=== PATIENT | female | born 1965 | race African-American/Black ===

== ENCOUNTER 2017-01-08 09:32 | Emergency (ER) | payer SELFPAY ==
[~2017-01-08 09:32] MED LIST: AMLO5TAB22 PO; DIPH50TA PO; LISI-360 PO; PRED20 PO; RANI150 PO
[2017-01-08 09:34] VITALS: BP 214/104; PULSE 89; RESP 16; TEMP 98.3; O2SAT 98
[2017-01-08 10:07] LABS: AUTOMATED NEUTROPHIL # 4.3 TH/MM3 (1.8-7.7); BASOPHIL % 0.5 % (0.0-2.0); EOSINOPHIL # 0.3 TH/MM3 (0-0.4); EOSINOPHIL % 3.8 % (0.0-4.0); HEMATOCRIT 39.5 % (35.0-46.0); HEMO FLAGS DIFF FINAL; LYMPH % 28.4 % (9.0-44.0); MEAN CORPUSCULAR HEMOGLOBIN 31.7 PG (27.0-34.0); MEAN CORPUSCULAR HGB CONC 33.3 % (32.0-36.0); MONO % 4.5 % (0.0-8.0); NEUT % 62.8 % (16.0-70.0); PLATELET COUNT 236 TH/MM3 (150-450); RED BLOOD COUNT 4.16 MIL/MM3 (4.00-5.30); RED CELL DISTRIBUTION WIDTH 13.6 % (11.6-17.2); WHITE BLOOD COUNT 6.9 TH/MM3 (4.0-11.0)
[2017-01-08 10:18] LABS: BACTERIA, URINE OCC /hpf; BLOOD, URINE TRACE (NEG); COMMENT (UR) CULT NOT INDICATED; CULTURE IF INDICATED CULT NOT INDICATED; GLUCOSE,URINE NEG (NEG); HYALINE CAST, URINE 1 /lpf (RARE); KETONE, URINE NEG (NEG); MUCUS URINE FEW /lpf (OCC); NITRITE,URINE NEG (NEG); PH, URINE 5.5 (5.0-8.5); SQUAMOUS EPITHELIAL CELL URINE 16 /hpf (0-5); URINE COLOR YELLOW (YELLW/STRAW)
[2017-01-08 10:21] LABS: ALT (GPT) 23 U/L (10-53); ANION GAP 10 MEQ/L (5-15); AST (GOT) 25 U/L (15-37); BICARBONATE 22.9 MEQ/L (21.0-32.0); BLOOD UREA NITROGEN 11 MG/DL (7-18); CHLORIDE 106 MEQ/L (98-107); GLOMERULAR FILTRATION RATE 67 ML/MIN (>89); POTASSIUM 3.5 MEQ/L (3.5-5.1); SODIUM (NA) 139 MEQ/L (136-145)
[2017-01-08 10:23] LABS: ALKALINE PHOSPHATASE 105 U/L (45-117)
--- NOTE | 2017-01-08 11:10 | PD ---
HPI Chief Complaint: GI Complaint Time Seen by Provider: 11:08 Travel History International Travel<30 days: No Contact w/Intl Traveler<30days: No Traveled to known affect area: No History of Present Illness HPI 51-year-old female came to the emergency room with history of lower abdominal pain for past 1 week this progressively worsening. She eventually decided to come to the emergency room. Pain is worse when she is up and walking. No history of spotting or vaginal discharge that is unusual. Patient had her menopause for over a year now. Vital signs were stable. No history of nausea vomiting. Workup was started in triage. Patient has never had a colonoscopy and did not have a [facility] exam in a while PFSH Past Medical History Narrative Medical List of his past medical, surgical, social and family history is reviewed from the nursing note. Diminished Hearing: No Hypertension: Yes Respiratory: Yes (UTERINE FIBROIDS AND CYSTS) Immunizations Current: Yes ?: Not Menopausal: Yes : 10 Para: 7 Miscarriage: 0 : 3 Ovarian Cysts: Yes (AND UTERING FIBROIDS) Social History Alcohol Use: Yes (4 x 16oz BEER daily) Tobacco Use: Yes (0.5 ppd) Substance Use: Yes (MARIJUANNA) Allergies-Medications (Allergen,Severity, Reaction): Coded Allergies: No Known Allergies (Verified , 09/01/15) Comments No known drug allergies. Reported Meds & Prescriptions Reported Meds & Active Scripts Active Flagyl (Metronidazole) 250 Mg Tab 250 Mg PO TID 10 Days Ciprofloxacin (Ciprofloxacin HCl) 500 Mg Tab 500 Mg PO BID 10 Days Amlodipine Besylate 5 mg (Amlodipine Besylate) 5 Mg Tab 1 Tab PO DAILY 30 Days Diphenhydramine Hcl (Diphenhydramine HCl) 50 Mg Cap 50 Mg PO Q6H PRN Zantac 150 Mg Tab (Ranitidine HCl) 150 Mg Tab 150 Mg PO BID 5 Days Deltasone 20 Mg Tab (Prednisone) 20 Mg Tab 20 Mg PO BID 5 Days Reported Lisinopril 10 mg (Lisinopril) 10 Mg Tab 10 Mg PO DAILY Narrative Medication List of her home medications reviewed from the nursing note. Review of Systems Except as stated in HPI: all other systems reviewed are Neg Physical Exam Narrative GENERAL: [-] SKIN: Focused skin assessment warm/dry. HEAD: Atraumatic. Normocephalic. EYES: Pupils equal and round. No scleral icterus. No injection or drainage. ENT: No nasal bleeding or discharge. Mucous membranes pink and moist. NECK: Trachea midline. No JVD. CARDIOVASCULAR: Regular rate and rhythm. No murmur appreciated. RESPIRATORY: No accessory muscle use. Clear to auscultation. Breath sounds equal bilaterally. GASTROINTESTINAL: Abdomen soft, tenderness in the lower abdomen upon palpation. , nondistended. Hepatic and splenic margins not palpable. MUSCULOSKELETAL: No obvious deformities. No clubbing. No cyanosis. No edema. NEUROLOGICAL: Awake and alert. No obvious cranial nerve deficits. Motor grossly within normal limits. Normal speech. PSYCHIATRIC: Appropriate mood and affect; insight and judgment normal. Data Data Last Documented VS Vital Signs Date Time Temp Pulse Resp B/P (MAP) Pulse Ox O2 Delivery O2 Flow Rate FiO2 01/08/17 13:47 80 18 176/82 (113) 98 01/08/17 09:34 98.3 Orders Orders Complete Blood Count With Diff (01/08/17 09:40) Comprehensive Metabolic Panel (01/08/17 09:40) Urinalysis - C+S If Indicated (01/08/17 09:40) Iv Access Insert/Monitor (01/08/17 09:40) Ct Abd/Pel W/O Iv Contrast (01/08/17 ) Ciprofloxacin (Cipro) (01/08/17 13:30) Metronidazole (Flagyl) (01/08/17 13:30) Labs Laboratory Tests Test 01/08/17 09:45 01/08/17 09:50 Urine Color YELLOW Urine Turbidity HAZY Urine pH 5.5 Urine Specific [place] 1.028 Urine Protein TRACE mg/dL Urine Glucose (UA) NEG mg/dL Urine Ketones NEG mg/dL Urine Occult Blood TRACE Urine Nitrite NEG Urine Bilirubin NEG Urine Urobilinogen 2.0 MG/DL Urine Leukocyte Esterase NEG Urine RBC 4 /hpf Urine WBC 4 /hpf Urine Squamous Epithelial Cells 16 /hpf Urine Bacteria OCC /hpf Urine Hyaline Casts 1 /lpf Urine Mucus FEW /lpf Microscopic Urinalysis Comment CULT NOT INDICATED White Blood Count 6.9 TH/MM3 Red Blood Count 4.16 MIL/MM3 Hemoglobin 13.2 GM/DL Hematocrit 39.5 % Mean Corpuscular Volume 95.0 FL Mean Corpuscular Hemoglobin 31.7 PG Mean Corpuscular Hemoglobin Concent 33.3 % Red Cell Distribution Width 13.6 % Platelet Count 236 TH/MM3 Mean Platelet Volume 9.1 FL Neutrophils (%) (Auto) 62.8 % Lymphocytes (%) (Auto) 28.4 % Monocytes (%) (Auto) 4.5 % Eosinophils (%) (Auto) 3.8 % Basophils (%) (Auto) 0.5 % Neutrophils # (Auto) 4.3 TH/MM3 Lymphocytes # (Auto) 2.0 TH/MM3 Monocytes # (Auto) 0.3 TH/MM3 Eosinophils # (Auto) 0.3 TH/MM3 Basophils # (Auto) 0.0 TH/MM3 CBC Comment DIFF FINAL Differential Comment Blood Urea Nitrogen 11 MG/DL Creatinine 1.04 MG/DL Random Glucose 106 MG/DL Total Protein 8.0 GM/DL Albumin 3.9 GM/DL Calcium Level 8.7 MG/DL Alkaline Phosphatase 105 U/L Aspartate Amino Transf (AST/SGOT) 25 U/L Alanine Aminotransferase (ALT/SGPT) 23 U/L Total Bilirubin 1.0 MG/DL Sodium Level 139 MEQ/L Potassium Level 3.5 MEQ/L Chloride Level 106 MEQ/L Carbon Dioxide Level 22.9 MEQ/L Anion Gap 10 MEQ/L Estimat Glomerular Filtration Rate 67 ML/MIN MDM Medical Decision Making Medical Screen Exam Complete: Yes Emergency Medical Condition: Yes Medical Record Reviewed: Yes Differential Diagnosis Acute diverticulitis, UTI, pelvic tumor Narrative Course 1:37 PM blood test results of back and within acceptable limit. UA was suggestive of few rbc's but otherwise negative. I got a CT of her abdomen and pelvis which shows mild acute diverticulitis. Since patient is tolerating by mouth well she will be given by mouth Cipro and Flagyl. I went in and discussed these findings with the patient. I explained to her regarding the acute diverticulitis. She's been given dietary instructions. All her questions were answered to the best of my ability. Procedures EKG Prior to Arrival: No Diagnosis Primary Impression: Acute diverticulitis Referrals: Primary Care Physician Additional Instructions: Please return to the ER if the condition worsens or any other new concerns like vomiting and unable to hold the antibiotics down. Otherwise follow-up with your primary care in couple days. The antibiotics as per the prescription direction. He should be taking clear liquid diet for the next 24-48 hours and if the symptoms started improving then you can slowly advanced to regular diet. Your primary care should refer you to a GI specialist for a colonoscopy near future. Do not eat food with seeds in them like tomatoes, cucumbers, nuts etc. Med/Other Pt SpecificInfo: Prescription(s) given Scripts Metronidazole (Flagyl) 250 Mg Tab 250 MG PO TID for Infection for 10 Days, TAB 0 Refills Prov: Prem Haque MD 01/08/17 Ciprofloxacin (Ciprofloxacin) 500 Mg Tab 500 MG PO BID for Infection for 10 Days, TAB 0 Refills Prov: Prem Hqaue MD 01/08/17 Disposition: 01 DISCHARGE HOME Condition: Stable Prem Haque MD Jan 08, 2017 11:10
--- NOTE | 2017-01-08 13:15 | RADRPT ---
EXAM DATE/TIME: 01/08/2017 12:50 [facility] COMPARISON: CT ABDOMEN & PELVIS W CONTRAST, September 09, 2014, 15:54. INDICATIONS : Lower abdomen pain starting four days ago. ORAL CONTRAST: No oral contrast ingested. RADIATION DOSE: 9.36 CTDIvol (mGy) MEDICAL HISTORY : Hypertension. Ovarian cysts and uterine fibroids. SURGICAL HISTORY : None. ENCOUNTER: Initial ACUITY: 4 - 6 days PAIN SCALE: 8/10 LOCATION: Bilateral lower quadrant TECHNIQUE: Volumetric scanning of the abdomen and pelvis was performed. Using automated exposure control and ad justment of the mA and/or kV according to patient size, radiation dose was kept as low as reasonably achievable to obtain optimal diagnostic quality images. DICOM format image data is available electro nically for review and comparison. FINDINGS: LOWER LUNGS: The visualized lower lungs are clear. LIVER: Homogeneous density without lesion. There is no dilation of the biliary tree. No calcified gallston es. Gallbladder seen is a luminal structure without wall thickening. SPLEEN: Normal size without lesion. PANCREAS: Within normal limits. KIDNEYS: Normal in size and shape. There is no mass, stone, or hydronephrosis. ADRENAL GLANDS: Within normal limits. VASCULAR: There is no aortic aneurysm. BOWEL/MESENTERY: At the distal descending sigmoid junction there are one or 2 small diverticuli and a faint suggestion of inflammatory changes in the pericolonic fat. ABDOMINAL WALL: Within normal limits. RETROPERITONEUM: There is no lymphadenopathy. BLADDER: No wall thickening or mass. REPRODUCTIVE: Uterus is enlarged and probable fibroid formation INGUINAL: There is no lymphadenopathy or hernia . MUSCULOSKELETAL: Within normal limits for patient age. CONCLUSION: At the junction of the distal descending and sigmoid colon in the left lower quadrant suggestion of 2 small diverticuli with some minimal inflammatory change in the pericolonic fat suggesting the possib ility of diverticulitis. Enlarged fibroid uterus Obi Gupta MD on January 08, 2017 at 13:08 Board Certified Radiologist. This report was verified electronically.
[2017-01-08] MEDS ORDERED: CIPROFLOXACIN 500 MG TAB PO ONE (13:30)
[2017-01-08] MEDS ORDERED: metroNIDAZOLE 500 MG TAB PO ONE (13:30)
[2017-01-08] MEDS ORDERED: METR250 PO (13:39)
[2017-01-08] MEDS ORDERED: CIPR500T2 PO (13:39)
[2017-01-08 13:47] VITALS: BP 176/82
== END 2017-01-08 13:58 | disposition home or self-care (01) ==
LOC: NEPD 09:32
DX: K57.92 Diverticulitis of intestine, part unspecified, without perforation or abscess without bleeding (principal); I10 Essential (primary) hypertension; F17.200 Nicotine dependence, unspecified, uncomplicated; Z79.899 Other long term (current) drug therapy
CPT/HCPCS: 74176; 80053; 81001; 85025; 99285

== ENCOUNTER 2017-10-08 16:20 | Emergency (ER) | payer SELFPAY ==
[~2017-10-08] VITALS: Ht 180.3 cm; Wt 65.0 kg
[~2017-10-08 16:20] MED LIST changes: +CIPR500T2 PO; +METR250 PO
[2017-10-08 16:24] VITALS: BP 180/98; PULSE 72; RESP 17; TEMP 97.6; O2SAT 99
--- NOTE | 2017-10-08 17:16 | PD ---
HPI Chief Complaint: Abdominal Pain Time Seen by Provider: 17:09 Travel History International Travel<30 days: No Contact w/Intl Traveler<30days: No Traveled to known affect area: No History of Present Illness HPI 52-year-old female with no significant past medical history presents for evaluation of lower abdominal pain and vaginal bleeding. Symptoms started 5 days ago. She describes it as a pressure pain in her suprapubic/lower back which is constant, associated with white vaginal bleeding. She reports that menopause was in 2016 she has not had any vaginal bleeding since then. Denies any nausea, vomiting, dysuria, flank pain, fevers, chills. She has no other complaints at this time. PFSH Past Medical History Diminished Hearing: No Hypertension: Yes Respiratory: Yes (UTERINE FIBROIDS AND CYSTS) Immunizations Current: Yes ?: Not Menopausal: Yes : 10 Para: 7 Miscarriage: 0 : 3 Ovarian Cysts: Yes (AND UTERING FIBROIDS) Social History Alcohol Use: Yes (4 x 16oz BEER daily) Tobacco Use: Yes (0.5 ppd) Substance Use: Yes (MARIJUANNA) Allergies-Medications (Allergen,Severity, Reaction): Coded Allergies: No Known Allergies (Verified Adverse Reaction, Unknown, 10/08/17) Reported Meds & Prescriptions Reported Meds & Active Scripts Active Flagyl (Metronidazole) 250 Mg Tab 250 Mg PO TID 10 Days Ciprofloxacin (Ciprofloxacin HCl) 500 Mg Tab 500 Mg PO BID 10 Days Review of Systems Except as stated in HPI: all other systems reviewed are Neg Physical Exam Narrative GENERAL: Well-developed well-nourished female no acute distress SKIN: Warm and dry. HEAD: Atraumatic. Normocephalic. EYES: Pupils equal and round. No scleral icterus. No injection or drainage. ENT: No nasal bleeding or discharge. Mucous membranes pink and moist. NECK: Trachea midline. No JVD. CARDIOVASCULAR: Regular rate and rhythm. No murmur appreciated. RESPIRATORY: No accessory muscle use. Clear to auscultation. Breath sounds equal bilaterally. GASTROINTESTINAL: Abdomen soft, non-tender, nondistended. Hepatic and splenic margins not palpable. MUSCULOSKELETAL: No obvious deformities. No clubbing. No cyanosis. No edema. NEUROLOGICAL: Awake and alert. No obvious cranial nerve deficits. Motor grossly within normal limits. Normal speech. Data Data Last Documented VS Vital Signs Date Time Temp Pulse Resp B/P (MAP) Pulse Ox O2 Delivery O2 Flow Rate FiO2 10/08/17 17:11 16 10/08/17 16:24 97.6 72 180/98 (125) 99 Orders Orders Complete Blood Count With Diff (10/08/17 17:13) Comprehensive Metabolic Panel (10/08/17 17:13) Urinalysis - C+S If Indicated (10/08/17 17:13) Act Partial Throm Time (Ptt) (10/08/17 17:13) Prothrombin Time / Inr (Pt) (10/08/17 17:13) Ed Discharge Order (10/08/17 18:30) Labs Laboratory Tests Test 10/08/17 17:25 10/08/17 17:30 White Blood Count 5.2 TH/MM3 Red Blood Count 4.02 MIL/MM3 Hemoglobin 13.2 GM/DL Hematocrit 37.9 % Mean Corpuscular Volume 94.5 FL Mean Corpuscular Hemoglobin 33.0 PG Mean Corpuscular Hemoglobin Concent 34.9 % Red Cell Distribution Width 13.2 % Platelet Count 203 TH/MM3 Mean Platelet Volume 9.9 FL Neutrophils (%) (Auto) 46.0 % Lymphocytes (%) (Auto) 42.5 % Monocytes (%) (Auto) 7.6 % Eosinophils (%) (Auto) 2.5 % Basophils (%) (Auto) 1.4 % Neutrophils # (Auto) 2.4 TH/MM3 Lymphocytes # (Auto) 2.2 TH/MM3 Monocytes # (Auto) 0.4 TH/MM3 Eosinophils # (Auto) 0.1 TH/MM3 Basophils # (Auto) 0.1 TH/MM3 CBC Comment DIFF FINAL Differential Comment Prothrombin Time 10.5 SEC Prothromb Time International Ratio 1.0 RATIO Activated Partial Thromboplast Time 26.8 SEC Blood Urea Nitrogen 14 MG/DL Creatinine 0.92 MG/DL Random Glucose 88 MG/DL Total Protein 7.5 GM/DL Albumin 3.6 GM/DL Calcium Level 8.5 MG/DL Alkaline Phosphatase 82 U/L Aspartate Amino Transf (AST/SGOT) 35 U/L Alanine Aminotransferase (ALT/SGPT) 28 U/L Total Bilirubin 0.4 MG/DL Sodium Level 143 MEQ/L Potassium Level 4.0 MEQ/L Chloride Level 105 MEQ/L Carbon Dioxide Level 28.3 MEQ/L Anion Gap 10 MEQ/L Estimat Glomerular Filtration Rate 77 ML/MIN Urine Color YELLOW Urine Turbidity CLEAR Urine pH 5.5 Urine Specific [place] 1.015 Urine Protein NEG mg/dL Urine Glucose (UA) NEG mg/dL Urine Ketones NEG mg/dL Urine Occult Blood MOD Urine Nitrite NEG Urine Bilirubin NEG Urine Urobilinogen LESS THAN 2.0 MG/DL Urine Leukocyte Esterase NEG Urine RBC 2 /hpf Urine WBC 1 /hpf Urine Squamous Epithelial Cells 3 /hpf Microscopic Urinalysis Comment CULT NOT INDICATED MDM Medical Decision Making Medical Screen Exam Complete: Yes Emergency Medical Condition: Yes Medical Record Reviewed: Yes Differential Diagnosis Abnormal uterine bleeding, acute anemia, fibroid, endometrial cancer Narrative Course 52-year-old female who is postmenopausal presents with 6 days of lower abdominal discomfort and light vaginal bleeding. Physical examination is reassuring. Her abdomen is soft with minimal lower abdominal tenderness without guarding. Plan is for lab work, urinalysis. CBC is unremarkable. Urinalysis reveals moderate blood otherwise unremarkable. At this point in time the plan would be to have the patient follow-up with a turner machine to consider endometrial biopsy. She is stable for discharge. Diagnosis Primary Impression: Abnormal uterine bleeding Referrals: Software Quality Assurance Analyst Additional Instructions: As discussed, follow-up with a turner machine. Return for any emergent medical conditions. Med/Other Pt SpecificInfo: No Change to Meds Disposition: 01 DISCHARGE HOME Condition: Stable Efra Stringer October 08, 2017 17:15
[2017-10-08 18:03] LABS: AUTOMATED NEUTROPHIL # 2.4 TH/MM3 (1.8-7.7); BASOPHIL # 0.1 TH/MM3 (0-0.2); BASOPHIL % 1.4 % (0.0-2.0); EOSINOPHIL # 0.1 TH/MM3 (0-0.4); EOSINOPHIL % 2.5 % (0.0-4.0); HEMATOCRIT 37.9 % (35.0-46.0); HEMOGLOBIN 13.2 GM/DL (11.6-15.3); LYMPH % 42.5 % (9.0-44.0); LYMPHOCYTE # 2.2 TH/MM3 (1.0-4.8); MEAN CELL VOLUME 94.5 FL (80.0-100.0); MEAN CORPUSCULAR HGB CONC 34.9 % (32.0-36.0); MEAN PLATELET VOLUME 9.9 FL (7.0-11.0); MONO % 7.6 % (0.0-8.0); MONOCYTE # 0.4 TH/MM3 (0-0.9); PLATELET COUNT 203 TH/MM3 (150-450); RED BLOOD COUNT 4.02 MIL/MM3 (4.00-5.30); RED CELL DISTRIBUTION WIDTH 13.2 % (11.6-17.2); WHITE BLOOD COUNT 5.2 TH/MM3 (4.0-11.0)
[2017-10-08 18:12] LABS: BILIRUBIN, URINE NEG (NEG); BLOOD, URINE MOD (NEG); GLUCOSE,URINE NEG (NEG); KETONE, URINE NEG (NEG); NITRITE,URINE NEG (NEG); PH, URINE 5.5 (5.0-8.5); SQUAMOUS EPITHELIAL CELL URINE 3 /hpf (0-5); URINE COLOR YELLOW (YELLW/STRAW); URINE LEUKOCYTE ESTERASE NEG (NEG)
[2017-10-08 18:22] LABS: PROTHROMBIN TIME - PATIENT 10.5 SEC (9.8-11.6)
[2017-10-08 18:26] LABS: ALBUMIN 3.6 GM/DL (3.4-5.0); AST (GOT) 35 U/L (15-37); BICARBONATE 28.3 MEQ/L (21.0-32.0); BLOOD UREA NITROGEN 14 MG/DL (7-18); CALCIUM 8.5 MG/DL (8.5-10.1); CHLORIDE 105 MEQ/L (98-107); CREATININE 0.92 MG/DL (0.50-1.00); GLOMERULAR FILTRATION RATE 77 ML/MIN (>89); GLUCOSE,RANDOM 88 MG/DL (74-106); SODIUM (NA) 143 MEQ/L (136-145)
[2017-10-08 18:30] LABS: ALKALINE PHOSPHATASE 82 U/L (45-117); ALT (GPT) 28 U/L (10-53); TOTAL BILIRUBIN ADULT 0.4 MG/DL (0.2-1.0); TOTAL PROTEIN 7.5 GM/DL (6.4-8.2)
[2017-10-08] MEDS ORDERED: KETOROLAC TROMETHAMINE 60 MG/2 ML (IM) VIAL IM ONE (18:45)
[2017-10-08 18:48] VITALS: BP 130/77; TEMP 97.8
== END 2017-10-08 18:48 | disposition home or self-care (01) ==
LOC: NEPD 16:20
DX: N95.0 Postmenopausal bleeding (principal); F12.90 Cannabis use, unspecified, uncomplicated; F17.200 Nicotine dependence, unspecified, uncomplicated
CPT/HCPCS: 80053; 81001; 85025; 85610; 85730; 99283